=== PATIENT | female | born 1990 | race Caucasian/White ===

== ENCOUNTER 2024-02-29 00:54 | Day surgery (SDC) | payer OTHER ==
[2024-02-29] VITALS (22 sets, daily range): BP systolic 84–105; BP diastolic 52–69; PULSE 65–84; TEMP 98.2–98.8
[~2024-02-29] VITALS: Ht 154.9 cm; Wt 69.0 kg
--- NOTE | 2024-02-29 01:00 | NUR ---
PT ADMITTED TO ROOM 347 FROM [facility] PER POV, PT AMBULATED TO ROOM, SIGN. OTHER WITH HER, PHONE REPORT REC'D FROM SYDNEY CORTES PRIOR TO ARRIVAL. PT HAS INT PRESENT IN LAC, PATENT/SECURE. ADMISSION INTAKE AND ASSESSMENT COMPLETED, ORIENTED TO ROOM AND PLAN OF CARE, C/O ABD PAIN RLQ, WILL REVIEW ORDERS AND BRING MEDS.
[2024-02-29] MEDS ORDERED: Ondansetron 4 MG/2 ML VIAL IV PRN ×3 (01:30→11:30)
[2024-02-29] MEDS ORDERED: Morphine 4 MG/ML VIAL IV PRN (01:30)
[2024-02-29] MEDS ORDERED: LR 1,000 ML IV SCH ×2 (01:30→09:30)
--- NOTE | 2024-02-29 01:32 | NUR ---
LR STARTED AT 100CC/HR AND MORPHINE 2MG GIVEN IV FOR PAIN. PT RESTING IN BED, NPO. FAMILY AT BS. NO QUESTIONS OR CONCERNS AT THIS TIME
--- NOTE | 2024-02-29 07:30 | NUR ---
DURING AM VITALS, PCT REPORTED B/P IN THE 70'S SYSTOLIC, BEST OF THREE B/P CHECKS WAS LOW 80'S SYSTOLIC. PATIENT PLACED IN
--- NOTE | 2024-02-29 07:30 | NUR ---
DURING AM VITALS, PCT REPORTED B/P OF 70'S SYSTOLIC WITH THE BEST OF THREE B/P CHECKS BEING IN THE LOW 80'S SYSTOLIC. PATIENT PLACED IN TRENDELENBURG POSITION AND IV FLUIDS INCREASED. BEDSIDE NURSE AWARE
--- NOTE | 2024-02-29 08:00 | NUR ---
PATIENT'S B/P NOW IN THE 100'S SYSTOLIC, ALL OTHER VSS.
--- NOTE | 2024-02-29 09:26 | NUR ---
SW met with patient to complete intake. Patient provides she lives in [facility] with spouse Aurelio Shelton [phone] who was present during intake. Patient provides that she does not utilize DME, is independent with adls, and does not utilize any home health services at this time. Patient states that her PCP is out of [facility], and provides medications are provided through [facility] as well. Patient states that spouse has been appointed as DPOA/HC, and plans to return to her home upon discharge. SW will continue to follow. Discharge plan: home w/spouse
[2024-02-29] MEDS ORDERED: hydrALAZINE 20 MG/ML 1 ML VIAL IV PRN (09:30)
[2024-02-29] MEDS ORDERED: fentaNYL 50 MCG/ML 1 ML SYRINGE/VIAL [PACU/SDC ONLY] IV PRN (09:30)
[2024-02-29] MEDS ORDERED: HYDROmorphone 1 MG/1 ML SYRINGE [PACU/SDC ONLY] IV PRN (09:30)
[2024-02-29] MEDS ORDERED: Ondansetron 4 MG/2 ML VIAL ONE (09:32)
[2024-02-29] MEDS ORDERED: dexAMETHasone 10 MG/ML VIAL ONE (09:32)
[2024-02-29] MEDS ORDERED: Lidocaine PF 2% (20 MG/ML) 5 ML VIAL ONE (09:32)
[2024-02-29] MEDS ORDERED: Rocuronium 50 MG/5 ML Multi-Dose VIAL ONE (09:32)
[2024-02-29] MEDS ORDERED: fentaNYL 50 MCG/ML 2 ML VIAL ONE (09:32)
--- NOTE | 2024-02-29 09:33 | NUR ---
OR TOOK PATIENT DOWN TO SURGERY. CALLED OR AND INFORMED THEM THAT HCG URINE WAS SENT BUT STILL PENDING. PATIENT'S B/P ARE STILL IN THE 100'S SYSTOLIC AND VSS. PATIENT OFF FLOOR.
--- NOTE | 2024-02-29 09:45 | NUR ---
PT WENT DOWN TO SURGERY AT 0935. PT HAD SOME SOFT BLOOD PRESSURES THIS AM AFTER GETTING A DOSE OF MORPHINE FROM [facility]. GOT ORDERS FROM DOEING FOR 00 ML FLUID BOLUS. PT LAST BLOOD PRESSURE WAS 104/67. PT ALSO FELT NAUSEA. GAVE ZOFRAN. PT IS DOWN STAIRS NOW.
[2024-02-29] MEDS ORDERED: Scopolamine 1 MG Delivered 3-Day PATCH TD SCH (10:29)
[2024-02-29] MEDS ORDERED: Topical Skin Adhesive 1 EACH (1 ML) TOP ONE (11:20)
[2024-02-29] MEDS ORDERED: Acetaminophen 325 MG TAB PO PRN (11:30)
[2024-02-29] MEDS ORDERED: Ibuprofen 600 MG TAB PO PRN (11:30)
[2024-02-29] MEDS ORDERED: NORCO 325 MG-51 TAB PO (11:33)
--- NOTE | 2024-02-29 11:56 | NUR ---
Data: Patient is in surgery. Some family waiting in Patient's room. waiting in surgery waiting area. Assessment: Family is appropriately concerned and supportive. Plan of Care: Cytotechnologist Supervisor provided prayer and a rosary. Chaplains will remain available as needed/requested while Patient is admitted to this hospital.
--- NOTE | 2024-02-29 12:22 | NUR ---
PT ARRIVED BACK FROM PACU AT 1210. VITALS STABLE. RATES PAIN 5/10. TOLERATING CLEARS.
--- NOTE | 2024-02-29 14:02 | NUR ---
DR. YANG NOTIFIED OF PT SOFT BP'S. NO NEW ORDERS.
--- NOTE | 2024-02-29 16:53 | NUR ---
weigh and charge worker met with patient and family members to discuss discharge planning. Patient lives in [facility] with her , Aurelio, P# [phone]. PCP is at [facility], Pharmacy is at [facility] in [place]. Insurance is , no issues affording medications. DPOA-HC is Aurelio. No DME, Patient reports to be independent with ADLS. Patient reports she is able to transport herself to and from appointments. Patient would like to return home at time of discharge. Discharge plan: Home
--- NOTE | 2024-02-29 17:45 | NUR ---
PT MOTHER IN LAW INSISTING PT HAVE LABS DRAWN BEFORE PT LEAVES. DR. YANG NOTIFIED. PT HAS MET ALL DISCHARGE REQUIREMENTS. GOTTEN UP AND GONE TO THE BATHROOM. TOLERATING GENERAL DIET. BLOOD PRESSURE SLOWLY INCREASING. PT IS REQUESTING TO STAY A FEW MORE HOURS TO MAKE SURE BLOOD PRESSURE STAYS UP. DR. PRADO IS OKAY WITH THAT.
[2024-02-29] MEDS ORDERED: Home HYDROcodone/Acetaminophen 5/325 MG #4 TABS/PACK PO ONE (20:00)
--- NOTE | 2024-02-29 20:10 | NUR ---
PT FEELS READY TO GO HOME, DISCHARGE INSTRUCTIONS GIVEN, IV IN LAC DC'D. PT REPORTING ABD PAIN OF 6/10, NORCO 5 1 TAB GIVEN. HOME PACK OF NORCO 5 PROVIDED SO UNABLE TO GET PRESCRIPTION FILLED THIS EVENING. VSS, ABLE TO AMBULATE W/O ASSIST, NO N/V OR DIZZINESS, VOIDING. TOLERATING REGULAR DIET. TAKEN TO ER EXIT PER W/C AND ASSISTED INTO VEHICLE.
== END 2024-02-29 20:10 | disposition home or self-care (01) ==
LOC: SDCO 00:54 → SURG 00:54 → EDSTATUS 15:35 → SURG 20:10 → SDCO 20:10
DX: K35.80 Unspecified acute appendicitis (principal)
CPT/HCPCS: OP; J0690; J1100; J1170; J2270; J2405; J2704; J3010; J7120